=== PATIENT | male | born 1970 | race Caucasian/White ===

== ENCOUNTER 2022-11-06 08:51 | Day surgery (SDC) | payer OTHER ==
[~2022-11-06] VITALS: Ht 172.7 cm; Wt 83.5 kg
[2022-11-06] MEDS ORDERED: MIDAZOLAM 5 MG/5 ML VIAL ONE (10:53)
[2022-11-06] MEDS ORDERED: LIDOCAINE 2% 100 MG/5 ML UJET TP ONE (10:53)
[2022-11-06] MEDS ORDERED: fentaNYL citrate 0.05 MG/ML VIAL ONE (10:53)
[2022-11-06] MEDS: fentaNYL citrate 0.05 MG/ML VIAL IVP ONE (11:11)
[2022-11-06] MEDS: MIDAZOLAM 2 MG/2 ML VIAL IVP ONE (11:12)
== END 2022-11-06 12:43 | disposition home or self-care (01) ==
LOC: MOR 08:51 → MMU 08:52 → MOR 12:43
PROVIDERS: ATTEND Internal Medicine Gastroenterology
DX: Z12.11 Encounter for screening for malignant neoplasm of colon (principal); K63.5 Polyp of colon; K21.00 Gastro-esophageal reflux disease with esophagitis, without bleeding; I10 Essential (primary) hypertension; E11.9 Type 2 diabetes mellitus without complications; E78.5 Hyperlipidemia, unspecified; Z20.822 Contact with and (suspected) exposure to COVID-19; Z79.899 Other long term (current) drug therapy
CPT/HCPCS: 36415; 43235; 45385; 82948; 86677; 87426; J2250; J3010; J7030